=== PATIENT | female | born 1945 | race Caucasian/White ===

== ENCOUNTER 2017-12-15 14:22 | Outpatient (CLI) | payer MEDICARE, OTHER ==
[2017-12-15 14:55] LABS: BASOPHILS # (AUTO) 0.1 10^3/uL (0.0-0.1); EOSINOPHILS # (AUTO) 0.2 10^3/uL (0.0-0.7); EOSINOPHILS % (AUTO) 2.6 %; HGB - HEMOGLOBIN 14.3 g/dL (12.0-16.0); LYMPHOCYTES % (AUTO) 30.9 %; MEAN CORPUSCULAR HEMOGLOBIN 28.1 pg (27.0-31.0); MEAN CORPUSCULAR HGB CONC 33.5 g/dL (32.0-36.0); MEAN CORPUSCULAR VOLUME 83.7 fL (81.0-99.0); MONOCYTES # (AUTO) 0.5 10^3/uL (0.0-1.0); MONOCYTES % (AUTO) 8.1 %; NEUTROPHILS # (AUTO) 3.7 10^3/uL (1.5-6.6); NEUTROPHILS % (AUTO) 57.4 %; PLT - PLATELET COUNT 299 10^3/uL (130-450); RED BLOOD COUNT 5.09 10^6/uL (4.20-5.40); RED CELL DISTRIBUTION WIDTH 13.7 % (12.0-15.0); WHITE BLOOD COUNT 6.5 x10^3/uL (4.8-10.8)
[2017-12-15 15:08] LABS: CALCIUM 9.2 mg/dL (8.5-10.3); CREATININE 0.5 mg/dL (0.4-1.0)
[2017-12-15 15:31] LABS: HB2 TOTAL 15.6 g/dL; HEMOGLOBIN A1C 0.68 g/dL; HEMOGLOBIN A1C % 6.1 % (4.6-6.2)
[2017-12-15 17:13] LABS: BILIRUBIN,URINE NEGATIVE (NEGATIVE); GLUCOSE, URINE (UA) NEGATIVE (NEGATIVE); KETONES,URINE (UA) NEGATIVE (NEGATIVE); LEUKOCYTE ESTERASE, URINE NEGATIVE (NEGATIVE); NITRITE,URINE NEGATIVE (NEGATIVE); OCCULT BLOOD,URINE NEGATIVE (NEGATIVE); PROTEIN,URINE NEGATIVE (NEGATIVE); UROBILINOGEN,URINE 0.2 (NORMAL) E.U./dL (NORMAL)
[2017-12-15 17:17] LABS: CLARITY,URINE CLOUDY (CLEAR)
[2017-12-15 17:20] LABS: AMORPHOUS SEDIMENT,UR Few /LPF; BACTERIA,URINE Many /HPF (None Seen); RBC,URINE 0-5 /HPF (0-5); SQUAMOUS EPITHELIAL CELL,UR MANY Squamous (<= Few)
== END 2017-12-15 14:23 | disposition home or self-care (01) ==
LOC: LAB 14:22
PROVIDERS: ATTEND Orthopaedic Surgery
DX: Z01.818 Encounter for other preprocedural examination (principal); R73.09 Other abnormal glucose; N39.9 Disorder of urinary system, unspecified
CPT/HCPCS: 36415; 80048; 81001; 81003; 83036; 85025; 87086; 93005

== ENCOUNTER 2018-03-22 08:05 | Emergency (ER) | payer MEDICARE, OTHER ==
--- NOTE | 2018-03-22 09:04 | ED Physician Documentation ---
PD HPI BACK PAIN - Stated complaint Stated Complaint: BACK PX - Chief complaint Chief Complaint: Back Pain - History obtained from History obtained from: Patient - History of Present Illness Timing - onset: How many days ago (3-4) Timing - duration: Days (3-4) Timing - details: Gradual onset, Still present Location: Lower, Right Quality: Pain, Aching Associated symptoms: No: Fever, Weakness, Numbness, Incontinent of urine, Hematuria Improves with: No: Rest Worsened by: Movement Contributing factors: No: Lifting, Twisting, Trauma Similar symptoms before: Has not had sx before Recently seen: Not recently seen Review of Systems Constitutional: denies: Fever, Chills, Myalgias Nose: denies: Rhinorrhea / runny nose, Congestion Throat: denies: Sore throat Cardiac: denies: Chest pain / pressure, Palpitations Respiratory: denies: Dyspnea, Cough GI: denies: Abdominal Pain, Abdominal Swelling, Nausea, Vomiting, Diarrhea : denies: Dysuria, Frequency, Hematuria Skin: denies: Rash, Lesions Musculoskeletal: reports: Back pain. denies: Neck pain, Extremity pain Neurologic: denies: Generalized weakness, Focal weakness, Numbness, Near syncope PD PAST MEDICAL HISTORY - Past Medical History Cardiovascular: None, High cholesterol Respiratory: None Endocrine/Autoimmune: None GI: GERD, Diverticulitis : None HEENT: None Psych: Depression, Anxiety Musculoskeletal: None Derm: None - Past Surgical History General: Colonoscopy /DIRECTOR ECONOMIC: section - Present Medications Home Medications: Ambulatory Orders Medication Instructions Recorded Confirmed Atorvastatin Calcium [Lipitor] 20 mg PO DAILY 09/16/14 04/18/16 Venlafaxine HCl [Effexor Xr] 75 mg PO DAILY 09/16/14 04/18/16 Aspirin 81 mg PO DAILY 09/17/14 04/18/16 Multivitamin [Multi-Vitamin Daily] 1 cap PO DAILY 09/17/14 04/18/16 Diazepam [Valium] 2 mg PO Q8H PRN #10 tablet 04/12/16 04/18/16 Lidocaine Patch 5% [Lidoderm Patch] 1 each TOP DAILY PRN #10 patch 04/12/1609/02 Dexamethasone [Decadron] 4 mg PO DAILY #5 tablet 03/22/18 HYDROcod/ACETAM 5/325 [[place] 5/325] 1 tab PO Q6H PRN #15 tablet 03/22/18 Methocarbamol [Robaxin] 500 mg PO Q6H PRN #25 tablet 03/22/18 - Allergies Allergies/Adverse Reactions: Allergies Allergy/AdvReac Type Severity Reaction Status Date / Time No Known Drug Allergies Allergy Verified 03/22/18 08:27 - Social History Does the pt smoke?: No Smoking Status: Never smoker PD ED PE NORMAL - Vitals Vital signs reviewed: Yes - General General: Alert and oriented X 3, No acute distress, Well developed/nourished - HEENT HEENT: Pharynx benign - Neck Neck: Supple, no meningeal sign, No adenopathy - Cardiac Cardiac: RRR, No murmur - Respiratory Respiratory: Clear bilaterally - Abdomen Abdomen: Normal bowel sounds, Soft, Non tender, Non distended, No organomegaly - Female Female : Deferred - Rectal Rectal: Deferred - Back Back: No spinal TTP, Other (no tenderness to light touch. There is some point tenderness at one spot in the right upper lumbar muscles. Otherwise not tender. ROM does not really exac the pain. ) - Derm Derm: Normal color, Warm and dry, No rash - Extremities Extremities: No deformity, No tenderness to palpate, Normal ROM s pain, No edema , No calf tenderness / cord - Neuro Neuro: Alert and oriented X 3, No motor deficit, Normal speech Results - Vitals Vitals: Vital Signs - 24 hr 03/22/18 03/22/18 08:22 10:29 Temperature 36.0 C L Heart Rate 84 73 Respiratory 20 16 Rate Blood Pressure 136/99 H 158/96 H O2 Saturation 98 98 Oxygen O2 Source Room air - Labs Labs: Laboratory Tests 03/22/18 10:14 Urine Color YELLOW Urine Clarity CLEAR Urine pH 6.0 Ur Specific [place] 1.025 Urine Protein NEGATIVE Urine Glucose (UA) NEGATIVE Urine Ketones NEGATIVE Urine Occult Blood TRACE-LYSE Urine Nitrite NEGATIVE Urine Bilirubin NEGATIVE Urine Urobilinogen 0.2 (NORMAL) Ur Leukocyte Esterase NEGATIVE Ur Microscopic Review NOT INDICATED Urine Culture Comments NOT INDICATED - Rads (name of study) kub CT Radiology: Prelim report reviewed (Artifact in the lower abdomen and pelvis from hip replacement. The bladder is not really visible. There is a small calcification in the pelvis area that would be consistent with the UVJ area. However there is no hydroureter nor hydronephrosis. No flank area masses or findings to account for the pain.) PD MEDICAL DECISION MAKING - ED course Complexity details: reviewed results (There was some artifact due to a hip replacement. There is a possible small stone at the right distal ureter but no signs of hydroureter nor hydronephrosis. This does not really correlate with her back pain so I do not think it is a true finding. There are no other acute processes seen to cause pain. Her urine test is normal.), considered differential (Consider possible kidney stone nor kidney infection. She has not have any abdominal tenderness or pain so unlikely to be gallbladder or appendix. There is no skin rash or sores though early shingles is still a possibility.), d/w patient - Sepsis Event Vital Signs: Vital Signs - 24 hr 03/22/18 03/22/18 08:22 10:29 Temperature 36.0 C L Heart Rate 84 73 Respiratory 20 16 Rate Blood Pressure 136/99 H 158/96 H O2 Saturation 98 98 Oxygen O2 Source Room air Departure - Departure Disposition: 01 Home, Self Care Clinical Impression: Acute right flank pain Condition: Stable Record reviewed to determine appropriate education?: Yes Instructions: ED Flank Pain Uncertain Cause Follow-Up: Wilner Thompson MD [Primary Care Provider] - Prescriptions: Dexamethasone [Decadron] 4 mg PO DAILY #5 tablet HYDROcod/ACETAM 5/325 [[place] 5/325] 1 tab PO Q6H PRN #15 tablet PRN Reason: Pain Methocarbamol [Robaxin] 500 mg PO Q6H PRN #25 tablet PRN Reason: Spasms Comments: There is no obvious cause of the pain based on the CT scan. There is question of a small stone down near the bladder but no swelling of the kidney but does not really correlate. There is no signs of kidney infection. I presume this is musculoskeletal pain at this point. We will treated with some anti- inflammatory and muscle relaxants and increased pain medication. Recheck if not improved over the next several days to week. Discharge Date/Time: 03/22/18 11:52
[2018-03-22] MEDS ORDERED: oxyCODONE 5 MG TABLET PO STA (09:17)
[2018-03-22] MEDS ORDERED: KETOROLAC 30 MG/ML VIAL IM STA (09:17)
--- NOTE | 2018-03-22 10:13 | CT Report ---
Reason: right flank pain for 3 days Procedure Date: 03/22/2018 Accession Number: [id number] / [id number] Procedure: CT - KUB CPT Code: FULL RESULT: EXAM: CT ABDOMEN AND PELVIS (CT KUB) EXAM DATE: 03/22/2018 09:45 AM. CLINICAL HISTORY: Right flank pain for 3 days. COMPARISONS: None. TECHNIQUE: Routine axial helical CT imaging was performed through the abdomen and pelvis without IV contrast. Reconstructions: Coronal and sagittal. In accordance with CT protocol optimization, one or more of the following dose reduction techniques were utilized for this exam: automated exposure control, adjustment of mA and/or KV based on patient size, or use of iterative reconstructive technique. FINDINGS: Lung Bases: Lung bases are clear small hiatal hernia. Included portions of the heart are unremarkable. Right Kidney/Ureter: No hydronephrosis. Density measuring 2 mm is seen along the expected position of the distal right ureter without proximal right ureteral dilatation or edematous changes. The density may be accentuated by the significant degree of artifact created by the left hip arthroplasty. Portions of the distal right ureter not well seen. Left Kidney/Ureter: No hydronephrosis or nephrolithiasis. No ureteral dilatation. The distal left ureter within the pelvis is completely obscured by the significant artifact created by the left hip arthroplasty. Other Solid Organs: Unenhanced images of the liver, spleen, adrenals and pancreas are unremarkable. Gallbladder/Bile Ducts: Unremarkable. Peritoneal Cavity: No bowel obstruction. Small fatty umbilical hernia. Very small volume of stool in the colon. Diverticula are seen in the descending and sigmoid colon. No diverticulitis. Appendix is normal. Pelvic Organs: Urinary bladder is completely obscured by artifact created by the left hip arthroplasty limiting detail. No pelvic free fluid is identified. Vasculature: Unremarkable. Other: Levoscoliosis of the lumbar spine. Degenerative changes of the lower thoracic and lumbar spine. Lumbar facet arthropathy. Degenerative changes of the right hip joint. Left total hip arthroplasty. IMPRESSION: 1. 2 mm density in the expected position of the distal right ureter artifact created by the left hip arthroplasty or distal right ureteral calculus just proximal to the UVJ. No significant right ureteral dilatation or right hydronephrosis is identified. Urinary bladder completely obscured by artifact created by the left hip arthroplasty. 2. Normal appendix. No bowel obstruction. 3. Colonic diverticulosis. No diverticulitis. 4. Small hiatal hernia. RADIA
[2018-03-22 10:18] LABS: BILIRUBIN,URINE NEGATIVE (NEGATIVE); GLUCOSE, URINE (UA) NEGATIVE (NEGATIVE); KETONES,URINE (UA) NEGATIVE (NEGATIVE); LEUKOCYTE ESTERASE, URINE NEGATIVE (NEGATIVE); NITRITE,URINE NEGATIVE (NEGATIVE); OCCULT BLOOD,URINE TRACE-LYSE (NEGATIVE); PROTEIN,URINE NEGATIVE (NEGATIVE); UROBILINOGEN,URINE 0.2 (NORMAL) E.U./dL (NORMAL)
[2018-03-22 10:20] LABS: CLARITY,URINE CLEAR (CLEAR)
[2018-03-22 10:32] VITALS: BP 158/96
== END 2018-03-22 11:52 | disposition home or self-care (01) ==
LOC: ED 08:05
DX: R10.9 Unspecified abdominal pain (principal); Z79.82 Long term (current) use of aspirin
CPT/HCPCS: 74176; 81003; 96372; 99283; A9270; 81001; 87086